=== PATIENT | female | born 1955 | race American Indian/Alaskan Native ===

== ENCOUNTER 2020-01-08 10:44 | Outpatient (CLI) | payer OTHER ==
--- NOTE | 2020-01-08 13:18 | XRay Report ---
XR knees standing AP Bilateral INDICATION / CLINICAL INFORMATION: PAIN IN BOTH KNEES. COMPARISON: None available. FINDINGS: BONES/JOINT(S): No acute fracture or subluxation. 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 SOFT TISSUES: No significant abnormality. ADDITIONAL FINDINGS: None. Signer Name: Rustam Garcia MD Signed: 01/08/2020 1:14 PM Workstation Name: [id number]
--- NOTE | 2020-01-08 13:18 | XRay Report ---
XR hand BILAT 3+V INDICATION / CLINICAL INFORMATION: PAIN IN BOTH HANDS. COMPARISON: None available. FINDINGS: BONES/JOINT(S): No acute fracture or subluxation. 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 No focal bone lesions. SOFT TISSUES: No significant abnormality. ADDITIONAL FINDINGS: None. Signer Name: Rustam Garcia MD Signed: 01/08/2020 1:13 PM Workstation Name: [id number]
== END 2020-01-08 10:45 | disposition home or self-care (01) ==
LOC: XRAY 10:44
PROVIDERS: ATTEND Internal Medicine Rheumatology
DX: M17.11 Unilateral primary osteoarthritis, right knee (principal); M19.042 Primary osteoarthritis, left hand; M19.041 Primary osteoarthritis, right hand
CPT/HCPCS: 73565